=== PATIENT | male | born 1940 | race Caucasian/White ===

== ENCOUNTER 2021-12-26 10:51 | Inpatient (IN) ==
[2021-12-26] MEDS ORDERED: 0.9 % Sodium Chloride 1,000 ML IVC ONE (11:43)
[2021-12-26 12:22] LABS: VBG HCO3 27 mEq/L (21-27); VBG PCO2 49 mmHg (41-51); VBG PH 7.35 pH Units (7.32-7.42); VBG PO2 159 mmHg (25-50)
[2021-12-26 12:35] LABS: Basophils % 0.2 %; Eosinophils # 0.1 K/mcL (0.0-0.6); Eosinophils % 0.6 %; Hematocrit 41.9 % (37.5-50.1); Hemoglobin 13.6 g/dL (12.9-16.9); Immature Granulocytes % 0.4 % (0-4); Mean Corpuscular HGB Conc 32.5 g/dL (31.6-35.5); Mean Corpuscular Hemoglobin 32.5 pg (28.0-33.3); Mean Corpuscular Volume 100.2 fL (83.0-100.0); Mean Platelet Volume 11.9 fL (9.4-12.4); Monocytes # 0.8 K/mcL (0.0-1.3); Monocytes % 8.4 %; Neutrophils # 7.4 K/mcL (1.6-8.9); Platelet Count 166 K/mcL (140-400); Red Blood Count 4.18 M/mcL (4.19-5.50); Red Cell Distribution Width 13.8 % (11.5-14.5); Segmented Neutrophils % 79.4 %; White Blood Count 9.4 K/mcL (4.3-11.1)
[2021-12-26 12:40] LABS: Bilirubin,Urine Negative (Negative); Blood,Urine Moderate (Negative); Clarity,Urine Clear (Clear); Color,Urine Light-Yellow (Yellow); Glucose,Urine (UA) >=1000 mg/dL (Normal); Hyaline Casts,Urine Few per lpf (None Seen); Ketones,Urine Negative (Negative); Leukocyte Esterase,Urine Moderate (Negative); Mucus,Urine Few per lpf (None-Few); Nitrite,Urine Positive (Negative); PH,Urine 6.5 pH Units (5.0-8.0); Protein,Urine Trace mg/dL (Neg-Trace); Specific Gravity,Urine 1.015 (1.010-1.025); Squamous Epithelial Cell,Urine Few per hpf (None-Few); Urobilinogen,Urine Normal (Normal); WBC,Urine 30-50 per hpf (0-3)
[2021-12-26 12:52] LABS: Influenza A PCR Negative (Negative); Influenza B PCR Negative (Negative); Resp. Syncytial Virus PCR Negative (Negative); SARS-CoV-2 by PCR (In House) Negative (Negative)
[2021-12-26 13:12] LABS: Albumin 3.8 g/dL (3.5-5.7); Albumin/Globulin Ratio 1.2 (1.1-2.2); Bilirubin,Total 0.6 mg/dL (0.3-1.0); Calcium 9.2 mg/dL (8.6-10.3); Globulin 3.2 g/dL (2.4-3.5); Magnesium 2.8 mg/dL (1.6-2.6); Potassium 3.6 mEq/L (3.5-5.1); Troponin I 0.04 ng/mL (< 0.04)
[2021-12-26] MEDS ORDERED: Insulin Human Regular 10 UNIT in 0.9 % Sodium Chloride 10 ML IV ONE (13:14)
[2021-12-26 13:36] LABS: Thyroid Stimulating Hormone 1.869 mcIU/mL (0.340-5.600)
[2021-12-26 13:54] LABS: VBG HCO3 28 mEq/L (21-27); VBG PCO2 46 mmHg (41-51); VBG PH 7.39 pH Units (7.32-7.42); VBG PO2 102 mmHg (25-50)
[2021-12-26] MEDS ORDERED: cefTRIAXone 2,000 MG in 0.9 % Sodium Chloride 20 ML IVP ONE (14:42)
[2021-12-26] MEDS ORDERED: 0.9 % Sodium Chloride 1,000 ML IV ONE (14:53)
[2021-12-26] MEDS ORDERED: *HR* Dextrose 50 % in Water (Syg) 50 ML SYRINGE IVP PRN (15:28)
[2021-12-26] MEDS ORDERED: Melatonin 3 MG TABLET PO PRN (15:28)
[2021-12-26] MEDS ORDERED: Naloxone 0.4 MG/ML INJ IVP PRN (15:28)
[2021-12-26] MEDS ORDERED: Acetaminophen 325 MG TABLET PO PRN (15:28)
[2021-12-26] MEDS ORDERED: Mag Hydrox/Al Hydrox/Simeth 30 ML UDC PO PRN (15:28)
[2021-12-26] MEDS ORDERED: Ondansetron 4 MG/2 ML VIAL IVP PRN (15:28)
[2021-12-26] MEDS ORDERED: D5% in Water 1,000 ML IVC PRN (15:28)
[2021-12-26] MEDS ORDERED: Dextrose Gel 15 GM/37.5 ML TUBE PO PRN ×2 (15:28)
[2021-12-26] MEDS: 0.9 % Sodium Chloride 1,000 ML IVC SCH (16:12)
[2021-12-26 16:51] LABS: Estimated Average Glucose 217 mg/dl; Hemoglobin A1C 9.2 %
[2021-12-26] MEDS: Insulin LISPRO 300 UNITS/3 ML VIAL SUBQ SCH ×2 (20:30→20:51)
[2021-12-26] MEDS: *HR* Enoxaparin 30 MG/0.3 ML SYRINGE SQ SCH (20:51)
[2021-12-27 04:48] LABS: Calcium 8.9 mg/dL (8.6-10.3); Potassium 3.6 mEq/L (3.5-5.1)
[2021-12-27 05:00] LABS: Basophils % 0.4 %; Eosinophils # 0.3 K/mcL (0.0-0.6); Eosinophils % 3.9 %; Hematocrit 39.1 % (37.5-50.1); Hemoglobin 12.8 g/dL (12.9-16.9); Immature Granulocytes % 0.6 % (0-4); Lymphocytes # 0.9 K/mcL (0.6-4.6); Lymphocytes % 12.5 %; Mean Corpuscular HGB Conc 32.7 g/dL (31.6-35.5); Mean Corpuscular Hemoglobin 31.9 pg (28.0-33.3); Mean Corpuscular Volume 97.5 fL (83.0-100.0); Mean Platelet Volume 11.4 fL (9.4-12.4); Monocytes # 0.6 K/mcL (0.0-1.3); Monocytes % 8.7 %; Neutrophils # 5.2 K/mcL (1.6-8.9); Platelet Count 147 K/mcL (140-400); Red Blood Count 4.01 M/mcL (4.19-5.50); Red Cell Distribution Width 13.6 % (11.5-14.5); Segmented Neutrophils % 73.9 %
[2021-12-27] MEDS: *HR* Enoxaparin 30 MG/0.3 ML SYRINGE SQ SCH (05:40)
[2021-12-27] MEDS: 0.9 % Sodium Chloride 1,000 ML IVC SCH (05:41)
[2021-12-27] MEDS ORDERED: D5% in Water 1,000 ML IVC PRN (09:22)
[2021-12-27] MEDS: Sennosides 8.6 MG TABLET PO SCH ×2 (09:23→20:43)
[2021-12-27] MEDS: Aspirin Enteric Coated 81 MG Tablet PO SCH (09:25)
[2021-12-27] MEDS: Multivit/Ca/Min/Fe/FA 1 TAB TABLET PO SCH (09:25)
[2021-12-27] MEDS: hydrALAZINE 25 MG TABLET PO SCH ×3 (09:26→20:44)
[2021-12-27] MEDS: Ascorbic Acid 500 MG TABLET PO SCH (09:27)
[2021-12-27] MEDS: Finasteride 5 MG TABLET PO SCH (09:27)
[2021-12-27] MEDS: carvediloL 25 MG TABLET PO SCH ×2 (09:27→20:44)
[2021-12-27] MEDS: Insulin LISPRO 300 UNITS/3 ML VIAL SUBQ SCH ×4 (09:28→20:45)
[2021-12-27] MEDS: Cholecalciferol (D-3) 1,000 UNIT (25MCG) TABLET PO SCH (09:28)
[2021-12-27] MEDS: *HR* SitaGLIPtin 25 MG TABLET PO SCH (12:03)
[2021-12-27] MEDS: Insulin NPH/REG 70/30 100 UNIT/ML (x5UNIT) SUBQ SCH ×3 (12:15→19:05)
[2021-12-27 12:28] LABS: Calcium 9.1 mg/dL (8.6-10.3); Potassium 3.3 mEq/L (3.5-5.1)
[2021-12-27] MEDS: cefTRIAXone 1,000 MG in 0.9 % Sodium Chloride 10 ML IVPB SCH (13:26)
[2021-12-27 20:43] LABS: Calcium 8.7 mg/dL (8.6-10.3); Potassium 3.6 mEq/L (3.5-5.1)
[2021-12-27] MEDS: Melatonin 3 MG TABLET PO SCH (20:44)
[2021-12-28 04:57] LABS: Hematocrit 34.7 % (37.5-50.1); Mean Corpuscular HGB Conc 32.6 g/dL (31.6-35.5); Mean Corpuscular Volume 98.3 fL (83.0-100.0); Mean Platelet Volume 11.4 fL (9.4-12.4); Platelet Count 145 K/mcL (140-400); Red Blood Count 3.53 M/mcL (4.19-5.50); Red Cell Distribution Width 13.6 % (11.5-14.5); White Blood Count 6.4 K/mcL (4.3-11.1)
[2021-12-28 04:58] LABS: Hemoglobin 11.3 g/dL (12.9-16.9)
[2021-12-28 05:16] LABS: BUN/Creatinine Ratio 27 (6-26); Blood Urea Nitrogen 35 mg/dL (8-23); Calcium 8.8 mg/dL (8.6-10.3); Carbon Dioxide 27 mEq/L (23-29); Chloride 114 mEq/L (98-107); Glucose 106 mg/dL (70-105); Osmolality,Calculated 308 (280-300); Potassium 3.3 mEq/L (3.5-5.1); Sodium 145 mEq/L (136-145); eGFR For African Americans > 60 (> 60); eGFR For Non-African Americans 52 (> 60)
[2021-12-28] MEDS: *HR* Enoxaparin 40 MG/0.4 ML SYRINGE SQ SCH (06:05)
[2021-12-28] MEDS: Insulin LISPRO 300 UNITS/3 ML VIAL SUBQ SCH ×4 (08:21→21:40)
[2021-12-28] MEDS: Cholecalciferol (D-3) 1,000 UNIT (25MCG) TABLET PO SCH (09:23)
[2021-12-28] MEDS: hydrALAZINE 25 MG TABLET PO SCH ×3 (09:23→21:35)
[2021-12-28] MEDS: Aspirin Enteric Coated 81 MG Tablet PO SCH (09:23)
[2021-12-28] MEDS: *HR* SitaGLIPtin 25 MG TABLET PO SCH (09:23)
[2021-12-28] MEDS: Ascorbic Acid 500 MG TABLET PO SCH (09:23)
[2021-12-28] MEDS: carvediloL 25 MG TABLET PO SCH ×2 (09:24→21:36)
[2021-12-28] MEDS: Insulin NPH/REG 70/30 100 UNIT/ML (x5UNIT) SUBQ SCH ×2 (09:25→18:33)
[2021-12-28] MEDS: Multivit/Ca/Min/Fe/FA 1 TAB TABLET PO SCH (09:25)
[2021-12-28] MEDS: Finasteride 5 MG TABLET PO SCH (09:25)
[2021-12-28] MEDS: Sennosides 8.6 MG TABLET PO SCH ×2 (09:25→21:36)
[2021-12-28] MEDS ORDERED: Potassium Chloride Elixir 20 MEQ/15 ML UDC PO ONE (10:51)
[2021-12-28] MEDS: cefTRIAXone 1,000 MG in 0.9 % Sodium Chloride 10 ML IVPB SCH (12:50)
[2021-12-28] MEDS: Melatonin 3 MG TABLET PO SCH (21:36)
[2021-12-29] MEDS: *HR* Enoxaparin 40 MG/0.4 ML SYRINGE SQ SCH (05:15)
[2021-12-29] MEDS ORDERED: Potassium Chloride Elixir 20 MEQ/15 ML UDC PO ONE (08:04)
[2021-12-29] MEDS: Insulin NPH/REG 70/30 100 UNIT/ML (x5UNIT) SUBQ SCH ×2 (08:10→20:39)
[2021-12-29] MEDS: Multivit/Ca/Min/Fe/FA 1 TAB TABLET PO SCH (08:11)
[2021-12-29] MEDS: Cholecalciferol (D-3) 1,000 UNIT (25MCG) TABLET PO SCH (08:11)
[2021-12-29] MEDS: hydrALAZINE 25 MG TABLET PO SCH ×3 (08:11→20:39)
[2021-12-29] MEDS: Ascorbic Acid 500 MG TABLET PO SCH (08:11)
[2021-12-29] MEDS: Sennosides 8.6 MG TABLET PO SCH ×2 (08:12→20:39)
[2021-12-29] MEDS: Aspirin Enteric Coated 81 MG Tablet PO SCH (08:12)
[2021-12-29] MEDS: carvediloL 25 MG TABLET PO SCH ×2 (08:12→20:39)
[2021-12-29] MEDS: Finasteride 5 MG TABLET PO SCH (08:13)
[2021-12-29] MEDS: *HR* SitaGLIPtin 25 MG TABLET PO SCH (08:13)
[2021-12-29] MEDS: Insulin LISPRO 300 UNITS/3 ML VIAL SUBQ SCH ×4 (08:13→20:40)
[2021-12-29 10:57] LABS: BUN/Creatinine Ratio 19 (6-26); Blood Urea Nitrogen 23 mg/dL (8-23); Calcium 8.9 mg/dL (8.6-10.3); Carbon Dioxide 26 mEq/L (23-29); Chloride 106 mEq/L (98-107); Glucose 164 mg/dL (70-105); Osmolality,Calculated 293 (280-300); Potassium 3.8 mEq/L (3.5-5.1); Sodium 138 mEq/L (136-145); eGFR For African Americans > 60 (> 60); eGFR For Non-African Americans 57 (> 60)
[2021-12-29] MEDS: cefTRIAXone 1,000 MG in 0.9 % Sodium Chloride 10 ML IVPB SCH (12:08)
[2021-12-29] MEDS: Furosemide 40 MG TABLET PO SCH (12:08)
[2021-12-29] MEDS: Melatonin 3 MG TABLET PO SCH (20:39)
[2021-12-30] MEDS: *HR* Enoxaparin 40 MG/0.4 ML SYRINGE SQ SCH (05:33)
[2021-12-30 06:26] LABS: BUN/Creatinine Ratio 21 (6-26); Blood Urea Nitrogen 27 mg/dL (8-23); Calcium 8.3 mg/dL (8.6-10.3); Carbon Dioxide 26 mEq/L (23-29); Chloride 108 mEq/L (98-107); Glucose 148 mg/dL (70-105); Osmolality,Calculated 294 (280-300); Sodium 138 mEq/L (136-145); eGFR For African Americans > 60 (> 60); eGFR For Non-African Americans 53 (> 60)
[2021-12-30 07:38] VITALS: PULSE 60; O2SAT 94
[2021-12-30] MEDS: Insulin LISPRO 300 UNITS/3 ML VIAL SUBQ SCH ×2 (08:01→12:11)
[2021-12-30] MEDS: Insulin NPH/REG 70/30 100 UNIT/ML (x5UNIT) SUBQ SCH (08:02)
[2021-12-30] MEDS: Sennosides 8.6 MG TABLET PO SCH (08:03)
[2021-12-30] MEDS: Aspirin Enteric Coated 81 MG Tablet PO SCH (08:03)
[2021-12-30] MEDS: Cholecalciferol (D-3) 1,000 UNIT (25MCG) TABLET PO SCH (08:03)
[2021-12-30] MEDS: *HR* SitaGLIPtin 25 MG TABLET PO SCH (08:03)
[2021-12-30] MEDS: hydrALAZINE 25 MG TABLET PO SCH (08:03)
[2021-12-30] MEDS: carvediloL 25 MG TABLET PO SCH (08:04)
[2021-12-30] MEDS: Ascorbic Acid 500 MG TABLET PO SCH (08:04)
[2021-12-30] MEDS: Furosemide 40 MG TABLET PO SCH (08:04)
[2021-12-30] MEDS: Finasteride 5 MG TABLET PO SCH (08:04)
[2021-12-30] MEDS: Multivit/Ca/Min/Fe/FA 1 TAB TABLET PO SCH (08:04)
[2021-12-30 11:36] VITALS: BP 121/61; TEMP 97.2
[2021-12-30] MEDS: cefTRIAXone 1,000 MG in 0.9 % Sodium Chloride 10 ML IVPB SCH (13:12)
== END 2021-12-30 16:58 | DRG 698 ==
LOC: EMEROOARM 10:51 → 3NENU 10:51 → SUATTDRO 16:40 → 3NENU 17:27 → SUATTDRO 12-27 15:23
PROVIDERS: ADMIT Internal Medicine; ATTEND Hospitalist